=== PATIENT | female | born 1995 ===

== ENCOUNTER 2018-06-08 08:22 | Day surgery (SDC) | payer BC ==
[2018-06-07 10:47] VITALS: BMI 32.7
[2018-06-08] MEDS ORDERED: Midazolam 2 MG/2 ML VIAL ONE (10:48)
[2018-06-08] MEDS ORDERED: Propofol 10 mg/ml Inj (20 ML) ONE (10:48)
[2018-06-08] MEDS ORDERED: Lidocaine Hydrochloride 5 ML INJ ONE (10:49)
[2018-06-08] MEDS ORDERED: Lactated Ringer's 500 ML IV SCH (11:00)
[2018-06-08 11:54] VITALS: TEMP 97.9
[2018-06-08 12:48] LABS: BASO % 0.1 % (0.0-2.0); EOS % 0.1 % (0.0-4.0); HEMOGLOBIN 9.2 g/dL (11.0-16.0); LYMPH # 1.1 K/uL (1.0-4.3); LYMPH % 15.8 % (20.0-40.0); MEAN CELL VOLUME 72.5 fL (81.0-99.0); MEAN CORPUSCULAR HEMOGLOBIN 21.8 pg (27.0-31.0); MEAN CORPUSCULAR HGB CONC 30.1 g/dL (33.0-37.0); MEAN PLATELET VOLUME 6.4 fL (7.2-11.7); MONO # 0.5 K/uL (0.0-0.8); MONO % 7.6 % (0.0-10.0); NEUT # 5.1 K/uL (1.8-7.0); NEUT % 76.4 % (50.0-75.0); RBC 4.21 Mil/uL (3.80-5.20); RED CELL DISTRIBUTION WIDTH 20.8 % (11.5-14.5); WHITE BLOOD COUNT 6.6 K/uL (4.8-10.8)
[2018-06-08 13:03] LABS: ALB/GLOB RATIO 0.8 (1.0-2.1); ALBUMIN 2.6 g/dL (3.5-5.0); ALT/SGPT 21 U/L (9-52); AST/SGOT 17 U/L (14-36); BLOOD UREA NITROGEN 6 mg/dL (7-17); CALCIUM 8.3 mg/dl (8.6-10.4); GFR NON-AFRICAN AMERICAN > 60
[2018-06-08 13:34] LABS: HEPATITIS B SURFACE AG Negative (NEGATIVE)
[2018-06-08 13:39] LABS: HEPATITIS A IGM NEGATIVE (NEGATIVE); HEPATITIS B CORE AB NEGATIVE (NEGATIVE)
[2018-06-08 13:51] LABS: HEPATITIS C ANTIBODY NEGATIVE (NEGATIVE)
[2018-06-08 13:54] VITALS: O2SAT 100
[2018-06-08 14:58] VITALS: BP 112/67; PULSE 106; RESP 18
--- NOTE | 2018-06-08 19:22 | CARD ---
APPROVED REPORT Date of service: 06/08/2018 EKG Measurement Heart [id number] <Conclusion> Sinus tachycardia Nonspecific T wave abnormality Abnormal ECG
== END 2018-06-08 13:20 | disposition home or self-care (01) ==
LOC: C.ENDO 08:22
PROVIDERS: ATTEND Internal Medicine Gastroenterology
DX: K51.20 Ulcerative (chronic) proctitis without complications (principal); K60.3 Anal fistula; K52.9 Noninfective gastroenteritis and colitis, unspecified; K62.89 Other specified diseases of anus and rectum
CPT/HCPCS: 45380; 80053; 80074; 84703; 85025; 88305; 93005; J2250; J2704; J7120